=== PATIENT | female | born 1980 | race Caucasian/White ===

== ENCOUNTER 2025-09-26 12:45 | Emergency (ER) | payer MEDICAID ==
[2025-09-26 14:21] LABS: BASOPHILS PERCENT AUTO 0.2 % (0.0-1.0); EOSINOPHILS PERCENT AUTO 1.6 % (1.0-3.0); LYMPHOCYTES PERCENT AUTO 28.5 % (20.5-50.1); MONOCYTES PERCENT AUTO 6.5 % (2-8); NEUTROPHILS PERCENT AUTO 63.2 % (42.2-75.2); PLATELET COUNT,PLT 436 10^3/uL (150-450); RED BLOOD CELL COUNT 5.17 10^6/uL (4.2-5.4); WHITE BLOOD CELL COUNT,WBC 13.3 10^3/uL (5.0-10.0)
[2025-09-26 14:28] LABS: A/G RATIO 0.9; ALANINE AMINOTRANSFERASE,ALT 33.0 U/L (14-59); ASPARTATE AMNIOTRANSFERASE,AST 12.0 U/L (15-37); BILIRUBIN TOTAL 0.2 mg/dL (0.2-1.0); BLOOD UREA NITROGEN,BUN 14.0 mg/dL (7-18); CARBON DIOXIDE,CO2 26.0 mmol/L (21-32); CHLORIDE,CL 103.0 mmol/L (98-107); CREATININE 1.24 mg/dL (0.55-1.02); EST CRCL DRUG DOSING (CG) 44.14 mL/min; ESTIMATED GFR 55.0 mL/min (>=60); GLUCOSE RANDOM 88.0 mg/dL (70-99); POTASSIUM,K 5.0 mmol/L (3.5-5.1); PROTEIN TOTAL,TP 8.0 g/dL (6.4-8.2); SODIUM,NA 138.0 mmol/L (136-145)
[2025-09-26 16:12] VITALS: BP 95/70; PULSE 97
== END 2025-09-26 16:03 | disposition home or self-care (01) ==
LOC: DL.ED 12:45
DX: R06.00 Dyspnea, unspecified (principal); E11.9 Type 2 diabetes mellitus without complications; F17.200 Nicotine dependence, unspecified, uncomplicated; Z88.2 Allergy status to sulfonamides; Z79.84 Long term (current) use of oral hypoglycemic drugs; Z90.49 Acquired absence of other specified parts of digestive tract
CPT/HCPCS: 36415; 71045; 80053; 83735; 83880; 84484; 85025; 85379; 93005; 93010; 94640; 99284; 99285; A9270-GY; J7030